=== PATIENT | male | born 1975 | race Two or more races ===

== ENCOUNTER 2021-11-17 07:00 | Emergency (ER) | payer SELFPAY ==
[~2021-11-17] VITALS: Ht 180.3 cm; Wt 90.7 kg
[2021-11-17 07:16] VITALS: BP 134/86
== END 2021-11-17 09:11 | disposition home or self-care (01) ==
LOC: ER 07:00
DX: M25.512 Pain in left shoulder (principal); M25.521 Pain in right elbow; R07.89 Other chest pain; V43.52XA Car driver injured in collision with other type car in traffic accident, initial encounter; Y93.89 Activity, other specified; Y92.410 Unspecified street and highway as the place of occurrence of the external cause; Y99.8 Other external cause status
CPT/HCPCS: 71045; 73020; 73090